=== PATIENT | male | born 1990 | race Caucasian/White ===

== ENCOUNTER 2021-03-11 09:28 | Emergency (ER) | payer MEDICAID ==
[~2021-03-11] VITALS: Ht 170.2 cm; Wt 77.1 kg
--- NOTE | 2021-03-11 09:58 | NUR ---
pt found running naked and breaking windows in custody ok for booking able to walk abd oirnted x3
--- NOTE | 2021-03-11 10:02 | NUR ---
Patient discharged to home in stable condition. Written and verbal after care instructions given. Patient verbalizes understanding of instruction.
[2021-03-11 10:05] VITALS: BP 122/67
== END 2021-03-11 10:07 | disposition home or self-care (01) ==
LOC: ER 09:29
DX: R41.82 Altered mental status, unspecified (principal); F31.9 Bipolar disorder, unspecified; F20.9 Schizophrenia, unspecified; Z60.2 Problems related to living alone